=== PATIENT | male | born 1945 | race Caucasian/White ===

== ENCOUNTER → 2016-08-17 | Emergency (ER) | payer OTHER ==
[~2016-08-17] VITALS: Ht 177.8 cm; Wt 98.2 kg
[~2016-08-17] MED LIST: ACETAMINOPHEN/CODEINE 300MG/30 MG (TYLENOL #3) TABLET PO ONE
[2016-08-17 20:05] VITALS: BP 137/75
== END | disposition home or self-care (01) ==
LOC: ED 19:57 → EDUNIT# 19:57
DX: R07.89 Other chest pain (principal)
CPT/HCPCS: 71020; 93005; 93010; 99284